=== PATIENT | male | born 1955 | race African-American/Black ===

== ENCOUNTER 2018-01-08 18:32 | Outpatient (CLI) | payer BC, OTHER ==
--- NOTE | 2018-01-08 19:08 | XRAY Report ---
EXAM: CHEST RADIOGRAPHY EXAM DATE: 01/08/2018 06:54 PM. CLINICAL HISTORY: ACUTE ON CHRONIC COUGH. COMPARISON: None. TECHNIQUE: 2 views. FINDINGS: Lungs/Pleura: Mild diffuse interstitial prominence with patchy increased densities throughout much of the left upper lobe. No consolidation, effusion, or pneumothorax. Mediastinum: Heart and mediastinal contours are unremarkable. Other: Scoliosis with degenerative changes. IMPRESSION: Extensive left upper lobe infiltrates. [facility] The call report notification system was initiated by Dr. Del Wyatt at 18:59 hrs on 01/08/18. The above findings were discussed with SALOMÓN Rivas by Dr. Del Wyatt at 19:06 hrs on . Referring Provider Line: [phone] SITE ID: [id number]
== END 2018-01-08 18:33 | disposition home or self-care (01) ==
LOC: DI 18:32
PROVIDERS: ATTEND Physician Assistant
DX: R91.8 Other nonspecific abnormal finding of lung field (principal)
CPT/HCPCS: 71046

== ENCOUNTER 2018-02-22 13:18 | Outpatient (CLI) | payer BC, OTHER ==
[2018-02-22] MEDS ORDERED: ALBUTEROL NEB 2.5 MG/3 ML INH ONE (14:00)
--- NOTE | 2018-02-22 15:11 | XRAY Report ---
TWO VIEW CHEST: 02/22/2018 CLINICAL INDICATION: Cough. COMPARISON: 01/08/2018. FINDINGS: Frontal and lateral views of the chest demonstrate a normal cardiac silhouette. Infiltrates have cleared. The lungs are now clear. No effusion or pneumothorax is present. IMPRESSION: NORMAL CHEST. TD: 02/22/2018 15:11
== END 2018-02-22 13:19 | disposition home or self-care (01) ==
LOC: RT 13:18
PROVIDERS: ATTEND Physician Assistant
DX: R05 Cough (principal); R94.2 Abnormal results of pulmonary function studies; Z87.891 Personal history of nicotine dependence
CPT/HCPCS: 71046; 94060

== ENCOUNTER 2018-05-17 09:09 | Day surgery (SDC) | payer BC ==
[2018-05-17] MEDS ORDERED: LACTATED RINGERS 1,000 ML IV ONE (09:55)
[2018-05-17] MEDS ORDERED: fentaNYL 250 MCG/5 ML VIAL IVP ONE (10:02)
[2018-05-17] MEDS ORDERED: MIDAZOLAM 2 MG/2 ML VIAL IVP ONE (10:02)
[2018-05-17 11:51] VITALS: BP 110/86
== END 2018-05-17 09:10 | disposition home or self-care (01) ==
LOC: SDS 09:09
PROVIDERS: ATTEND Surgery
PROC: 0DBE8ZZ Excision of Large Intestine, Via Natural or Artificial Opening Endoscopic (ICD-10-PCS; 2018-05-17)
PROC: 0DBN8ZZ Excision of Sigmoid Colon, Via Natural or Artificial Opening Endoscopic (ICD-10-PCS; principal; 2018-05-17 10:15)
DX: Z12.11 Encounter for screening for malignant neoplasm of colon (principal); D12.5 Benign neoplasm of sigmoid colon; K62.0 Anal polyp; K64.8 Other hemorrhoids; Z87.891 Personal history of nicotine dependence
CPT/HCPCS: 45385; J3010; J7120

== ENCOUNTER 2019-11-08 09:59 | Outpatient (CLI) | payer BC ==
[2019-11-08 12:35] LABS: BASOPHILS % (AUTO) 0.2 %; EOSINOPHILS % (AUTO) 0.8 %; HGB - HEMOGLOBIN 15.3 g/dL (14.0-18.0); LYMPHOCYTES # (AUTO) 2.3 10^3/uL (1.5-3.5); LYMPHOCYTES % (AUTO) 48.9 %; MEAN CORPUSCULAR HGB CONC 32.7 g/dL (32.0-36.0); MEAN CORPUSCULAR VOLUME 82.7 fL (80.0-94.0); MEAN PLATELET VOLUME 10.8 fL (7.4-11.4); MONOCYTES # (AUTO) 0.2 10^3/uL (0.0-1.0); MONOCYTES % (AUTO) 5.1 %; NEUTROPHILS # (AUTO) 2.1 10^3/uL (1.5-6.6); NEUTROPHILS % (AUTO) 44.6 %; PLT - PLATELET COUNT 240 10^3/uL (130-450); RED BLOOD COUNT 5.66 10^6/uL (4.70-6.10); RED CELL DISTRIBUTION WIDTH 13.9 % (12.0-15.0); WHITE BLOOD COUNT 4.7 x10^3/uL (4.8-10.8)
[2019-11-08 12:49] LABS: HB2 TOTAL 15.3 g/dL; HEMOGLOBIN A1C 0.71 g/dL; HEMOGLOBIN A1C % 6.4 % (4.6-6.2)
[2019-11-08 13:00] LABS: ALBUMIN 3.6 g/dL (3.2-5.5); ALBUMIN/GLOBULIN RATIO 0.9 (1.0-2.2); ALKALINE PHOSPHATASE 74 IU/L (42-121); ALT ALANINE AMINOTRANSFERASE 63 IU/L (10-60); AST ASPARTATE AMINOTRANSFERASE 36 IU/L (10-42); BILIRUBIN,TOTAL 0.3 mg/dL (0.2-1.0); BUN - BLOOD UREA NITROGEN 18 mg/dL (6-20); CARBON DIOXIDE - CO2 24 mmol/L (21-32); CHLORIDE 105 mmol/L (101-111); CHOL/HDL RATIO 6.4 (<5.0); CHOLESTEROL 153 mg/dL; CREATININE 0.8 mg/dL (0.6-1.2); GFR - MDRD 118 (>89); GLUCOSE 113 mg/dL (70-100); HDL CHOLESTEROL 24 mg/dL; LDL CHOLESTEROL,CALCULATED 95 mg/dL; SODIUM 137 mmol/L (135-145); TOTAL PROTEIN 7.5 g/dL (6.7-8.2); VLDL CHOLESTEROL 34 mg/dL
[2019-11-08 13:15] LABS: PLATELET MORPHOLOGY NORMAL APPEARANCE (NORMAL)
[2019-11-08 13:16] LABS: PLATELET ESTIMATE, MANUAL NORMAL (130-450,000) (NORMAL); RBC MORPHOLOGY (MULTIPLE) NORMAL APPEARANCE (NORMAL)
== END 2019-11-08 23:59 | disposition home or self-care (01) ==
LOC: LAB.N 09:59
PROVIDERS: ATTEND Family Medicine
DX: Z00.00 Encounter for general adult medical examination without abnormal findings (principal)
CPT/HCPCS: 36415; 80053; 80061; 83036; 83721; 84443; 85025

== ENCOUNTER 2019-12-08 11:25 | Day surgery (SDC) | payer BC ==
[2019-12-08] MEDS ORDERED: LACTATED RINGERS 1,000 ML IV ONE (12:16)
[2019-12-08] MEDS ORDERED: MIDAZOLAM 2 MG/2 ML VIAL IVP ONE (13:59)
[2019-12-08] MEDS ORDERED: fentaNYL 250 MCG/5 ML VIAL IVP ONE (13:59)
[2019-12-08 15:21] VITALS: BP 124/80
== END 2019-12-08 11:26 | disposition home or self-care (01) ==
LOC: SDS 11:25
PROVIDERS: ATTEND Surgery
PROC: 0DBN8ZZ Excision of Sigmoid Colon, Via Natural or Artificial Opening Endoscopic (ICD-10-PCS; 2019-12-08)
PROC: 0DBP8ZZ Excision of Rectum, Via Natural or Artificial Opening Endoscopic (ICD-10-PCS; principal; 2019-12-08 12:30)
DX: Z12.11 Encounter for screening for malignant neoplasm of colon (principal); D12.8 Benign neoplasm of rectum; K63.5 Polyp of colon; K64.8 Other hemorrhoids; K64.4 Residual hemorrhoidal skin tags; Z79.82 Long term (current) use of aspirin; Z87.891 Personal history of nicotine dependence
CPT/HCPCS: 45380; J3010; J7120

== ENCOUNTER 2020-01-17 13:44 | Outpatient (CLI) | payer BC ==
--- NOTE | 2020-01-17 14:15 | SLEEP CARE CONSULTATION ---
Information from patient questionnaire entered by Bonny Keane. I have reviewed and concur with the information entered by Bonny Keane. This document represents the service I personally performed and the decisions made by me, Shania Montenegro MD, [facility]. History of Present Illness Reason for Visit: New patient Duration of Symptoms: 5 years Time it takes to fall asleep: 15 min Snores at night: Yes Observed to quit breathing while asleep: Yes Sleeps alone due to snoring: Yes Number of times waking at night: 4-5 Reasons for waking at night: reports: Snoring, Gasping for air Toss, Turn, or Twitch while sleeping: Yes Recalls having dreams: No Usually gets out of bed at: varies depending on day Feels refreshed in the morning: No Morning headache: No Sleepy or fatigued during the day: Yes Ever fallen asleep while driving: Yes Takes day naps: Yes Dreams during day naps: No Prior sleep studies: No Additional HPI information: I had the pleasure of seeing Mr. Roberts today regarding the possibility of him having a sleep disorder. As you know, he is a 64 year old gentleman who complains of loud snore. The patient tells me that he normally goes to bed around 11 pm, and it takes him approximately 15 minutes to fall asleep. He has been told that he snores loudly and irregularly at night. He has also been observed to stop breathing in his sleep. His girlfriend has to sleep in a separate room. He can recall waking up on the average of 4 - 5 times during the night. Most of the time he wakes up because of his own snoring, choking, and having to gasp for air. There is a lot of tossing and turning in his sleep. He has somniloquy (sleep talking) but not somnambulism (sleep walking). Generally there is no recollection of dreams. In the morning he usually gets up out of the bed around 6:30 a.m. not feeling refreshed nor rested. He usually does not have a morning headache. During the day he complains of feeling sleepy and fatigued. His score on [place] Sleepiness Scale is 19 out of 24. He has fallen asleep while driving and has gone out of the jeanne. He usually takes naps during the day. Upon falling asleep during the day he denies having vivid dreams. He has never had sleep paralysis, experienced cataplexy but reports symptoms of restless leg syndrome. He reports having impaired concentration during the day. - Parasomnia Symptoms Ever been unable to move upon waking from sleep: Yes Ever felt weak in the knees when startled or emotional: Yes Bothered by creepy, crawly, restless sensations in legs: Yes Problems with memory or concentration: Yes Subjective Initial [place] Sleepiness Scale score: 19 Social History The patient's occupation is a [employer]. Patient is Single and lives in [place]. Have you smoked in the past 12 months: No Cigarettes per day (20/pack): 20 Years of smokin Quit date: 1996 Smoking Pack Years: 25.0 Alcohol use: Yes Alcohol amount and frequency: 1 daily Caffeine use: No Family History Family history of sleep disordered breathing: No Allergies and Home Medications Drug allergies reviewed: Yes Home medication list reviewed: Yes (none) Review of Systems Cardiovascular: denies: high blood pressure, palpitations, chest pain, irregular heart rate or pulse, leg or foot swelling, have to sleep sitting up, other Respiratory: denies: shortness of breath, wheeze, sputum production, chronic cough, other Gastrointestinal: denies: heartburn, difficulty swallowing, nausea, vomitting, diarrhea, abdominal pain, other Urinary: denies: incontinence, frequency, urgency, impotence, other Neurological: denies: headaches, seizure, head trauma, disorientation, speech dysfunction, gait or balance problems, fainting or unconsciousness, other Psychiatric: denies: Attention Deficit Hyperactivity, anxiety, depression, mood disorder, claustrophobia, other Ear/Nose/Throat: denies: nasal congestion, sinus problems, nose bleeds, dry mouth/throat, hoarseness, injury to nose, tonsillectomy, wisdom teeth removed, other Endocrine: denies: thyroid disease, history of goiter, sluggishness, too hot or cold, excessive thirst, increased appetite, increased urination, unexplained weakness, other Musculoskeletal: denies: joint pain, neck pain, back pain, joint swelling, muscle pain or cramping, mobility problems, other Immunologic: denies: sneezing, rash, itching, allergies to food or environment, other Physical Exam Vital signs obtained and entered by: Physical exam is deferred because the Coronavirus epidemic. Height: 6 ft 2 in Weight: 246 lb Body Mass Index: 31.6 BMI Classification: Obese Impression and Plan IMPRESSION: 1. Obstructive Sleep Apnea-Hypopnea Syndrome, as suggested by history of loud and irregular snoring, observed cessation of breath while asleep, frequent awakenings during the night, nocturnal choking, unrefreshed sleep, cognitive impairment, and daytime hypersomnolence. Narrow oropharynx and obesity are common predisposing factors for obstructive sleep apnea-hypopnea syndrome. Pathophysiology of sleep-disordered breathing was discussed. I recommend proceeding to polysomnography to confirm the diagnosis and to assess severity. If he has significant sleep disordered breathing, a manual CPAP titration study will also be performed to find the optimal treatment pressure. I informed the patient of what the sleep studies involve and after some discussion, he agreed to proceed. Plan: 1. Schedule an in-laboratory polysomnography or a home sleep apnea test (HSAT). 2. Avoid long distance driving or when feeling sleepy. 3. Avoid alcohol, sedative and muscle relaxant around bedtime. 4. Attempt to lose weight. 5. Return in 1 to 2 weeks after the study to discuss results and initiate therapy. I spent 100% of this visit face to face with the patient with greater than 50% of this was spent time counseling the patient and coordination of care.
== END 2020-01-17 13:45 | disposition home or self-care (01) ==
LOC: SC 13:44
PROVIDERS: ATTEND Internal Medicine Pulmonary Disease
DX: G47.10 Hypersomnia, unspecified (principal); R06.81 Apnea, not elsewhere classified; R41.89 Other symptoms and signs involving cognitive functions and awareness; G47.8 Other sleep disorders; R06.83 Snoring; E66.9 Obesity, unspecified; Z68.31 Body mass index [BMI] 31.0-31.9, adult
CPT/HCPCS: 99203; 99212

== ENCOUNTER 2020-01-27 20:28 | Outpatient (CLI) | payer BC | END 2020-01-27 20:29 | disposition home or self-care (01) | LOC: SC 20:28 | PROVIDERS: ATTEND Internal Medicine Pulmonary Disease | DX: G47.33 Obstructive sleep apnea (adult) (pediatric) (principal); E66.3 Overweight; Z68.31 Body mass index [BMI] 31.0-31.9, adult | CPT/HCPCS: 95810 ==

== ENCOUNTER 2020-03-05 13:42 | Outpatient (CLI) | payer BC ==
--- NOTE | 2020-03-05 11:01 | SLEEP CARE CONSULTATION ---
Information from patient questionnaire entered by Michelle Moreno. I have reviewed and concur with the information entered by Michelle Moreno. This document represents the service I personally performed and the decisions made by me, Elaine Lambert, RN, MSN, [employer]. History of Present Illness Service Date and Time: 03/05/2020 1030 Initial [place] Sleepiness Scale score: 19 Additional HPI information: SALOME HERNANDEZ had a video appointment for follow up and results of the recently performed polysomnography. I explained the pathophysiology behind obstructive sleep apnea. We then spent quite a bit of time discussing different treatment options. For mild obstructive sleep apnea, surgery and oral appliance are alternatives to nasal CPAP therapy but in moderate or severe cases, nasal CPAP is the most effective and reliable treatment. Because apnea is primarily in supine position, then positional management therapy could be effective. Methods discussed such as positioning with pillows, using a T-shirt with tennis balls in the back, and shown commercial products that have a pillow format on back to prevent supine sleep. I reviewed the impact of weight changes on sleep apnea and strongly recommended losing weight. After some discussion, the patient opted to go with the nasal CPAP therapy. Nasal autoCPAP set at [id number] will be ordered with rationale explained. A manual titration study will be ordered if unable to find optimal pressure with office adjustments. I explained how CPAP machine works and what to expect when using the machine. Using CPAP every night in order to get used to it was emphasized. Patient advised to put CPAP mask on before getting into bed so as not to fall asleep without CPAP. To assist acclimation to CPAP use, it could also be used for a short time during day while reading or watching TV. The patient was instructed to call the CPAP supplier to discuss any mechanical problem that may occur. If the mask given is uncomfortable or is difficult to keep on through the night even with adjustment, contact the CPAP supplier as many will replace with another mask style if notified before 30 days. If snoring or perceives is not getting enough air or too much air from the machine, notify this office. AASM patient education PAP tips were reviewed and pamphlet sent to patient. Patient counseled not drink alcohol less than 4 hours before bedtime as it can increase snoring and apnea. Patient was cautioned about risks of drowsy driving until sleepiness symptoms resolve. Sleep Study - Results Polysomnography/Home Sleep Study results: The quality of the study is good. The patient had normal sleep efficiency. The sleep architecture was relatively normal as well considering the first-night effect. Respiratory monitoring showed mild obstructive sleep apnea-hypopnea (AHI = 5.3) associated with frequent arousals, oxyhemoglobin desaturation and mild hypoxia (tatyana oxygen saturation of 84%). The respiratory events occurred mainly during only during supine REM sleep (supine AHI = 10.8; non-supine = 0.00). Snore was moderate to loud in intensity. There was no significant periodic leg movement of sleep. Cardiac rhythm was normal sinus rhythm with occasional premature atrial contractions. No abnormal behavior (parasomnia) observed during the night. Physical Exam Height: 6 ft 2 in Weight: 244 lb (home weight) Body Mass Index: 31.3 BMI Classification: Obese Impression and Plan 1. Obstructive Sleep Apnea-Hypopnea Syndrome, mild, with lowest oxygen saturation of 84%. Obviously this is the cause of the patients symptoms of unrefreshed sleep, and excessive daytime sleepiness. As mentioned above, the patient will be started on nasal autoCPAP therapy with pressure set at 5-15 cmH2 O. A manual titration study will be completed if unable to find optimal treatment pressure with office adjustments. Compliance guidelines also reviewed. A copy of compliance guidelines will be sent for reference as well as AASM PAP tips. Because the apnea is more severe supine, I instructed to avoid sleeping supine using pillow positioning until able to start CPAP use. * Nasal auto CPAP therapy, pressure at 5-15 cm H2O. * Attempt to lose weight. * Avoid alcohol consumption near bedtime. * Avoid supine sleep until using CPAP. * The patient is again cautioned about driving until sleepiness completely resolves. * Return one month after CPAP obtained. I will assess response to therapy and compliance at that time. Visit Type: Telehealth Video Video Type: Podaddies Time Spent with Patient (minutes): 26 Provider Statement: I spent 100% of the Telehealth Video Call with the patient with greater than 50% spent counseling the patient and coordination of care.
== END 2020-03-05 13:43 | disposition home or self-care (01) ==
LOC: SC 13:42
PROVIDERS: ATTEND Nurse Practitioner Family
DX: G47.33 Obstructive sleep apnea (adult) (pediatric) (principal); E66.9 Obesity, unspecified; Z68.31 Body mass index [BMI] 31.0-31.9, adult

== ENCOUNTER 2020-09-03 09:05 | Outpatient (CLI) | payer BC ==
--- NOTE | 2020-09-03 09:43 | SLEEP CARE CONSULTATION ---
Information from patient questionnaire entered by Em Roberts. I have reviewed and concur with the information entered by Em Roberts. This document represents the service I personally performed and the decisions made by me, Angie Yi ARNP. History of Present Illness Service Date and Time: 09/03/2020904 Previous diagnosis: Mild, Obstructive Sleep Apnea-Hypopnea Syndrome AHI: 5.3 Reason for follow up: three month (Followup pressure change) Equipment type: CPAP Equipment obtained from: [employer] (getting supplies as needed) Mask style: Nasal pillows Backup mask available: Yes (old mask) Last cushion change: last week Prior sleep studies: No Year and Where: 2019 [facility] Type of Sleep Study: Polysomnography HPI additional information: SALOME ROBERTS was diagnosed to have mild, AHI 5.3, obstructive sleep apnea- hypopnea syndrome and returned today for CPAP therapy three month pressure change follow-up. Sleep Study - Results Prior sleep studies: No CPAP Compliance Data - Data Reviewed with Patient Average duration of nightly device use: 5 h 15 min Compliance rate %: 63.3 Current pressure setting (cmH2O): 5-8 Humidity settin Heated hose settin Average residual AHI: 1.8 Average large leak: 1 min 43 sec Subjective Missed days of use due to: reports: other ("being lazy"; 1-2 hour nap after dinner, falling asleep without mask on) Patient concerns: denies: aerophagia, mask discomfort, air blowing in eyes, mask leak noise, condensation in mask/hose, nasal congestion, dry mouth, nose, throat, epistaxis, other Observed to snore while using device: No (only if he sleeps with mouth open) Current pressure setting perceived as: comfortable On therapy, patient: reports: sleeping better, awakening more refreshed, being more awake and alert during the day, more rested overall. denies: drowsiness while driving Initial [place] Sleepiness Scale score: 19 Current [place] Sleepiness Scale score: 7 Allergies and Home Medications Drug allergies reviewed: Yes (NKDA) Home medication list reviewed: Yes (no medications) Review of Systems Review of systems same as previous: Yes (no changes) Physical Exam Heart Rate: 89 O2 Saturation: 98 Height: 6 ft 2 in Weight: 252 lb Body Mass Index: 32.3 BMI Classification: Obese Impression and Plan 1. Obstructive Sleep Apnea-Hypopnea Syndrome, mild, with fair treatment compliance and good apnea control. On CPAP therapy, the patient has better sleep quality and is more rested overall. Patient has been taking a 1-2 hour nap after dinner and then laying down at night before putting on CPAP. He will fall asleep without it and this is reducing his compliance to the 63.3%. I encouraged him to put the CPAP on for naps and also to put mask on before getting into bed so he will not fall asleep without it. He is doing well with the current pressure setting with good apnea control. He just needs to increase his compliance. I will have him follow up in 1-2 months to check compliance again. He voiced understanding and agreement with plan. Patient's apnea severity and rationale for treatment to reduce apnea, improve sleep quality and reduce cardiovascular and cerebrovascular events was reviewed. * Continue auto CPAP pressure at 5-8 cmH2O * Notify me if snoring with mask or feeling that the pressure is too much or too little * Attempt to lose weight * Call this office if any problems using CPAP * Return for follow up in 1-2 months, or sooner if concerns arise Counseling Topics: Spare mask, Weight loss health impact Visit Type: In Office Time Spent with Patient (minutes): 19 Provider Statement: I spent 100% of the Face to Face Visit with the patient with greater than 50% spent counseling the patient and coordination of care.
== END 2020-09-03 09:06 | disposition home or self-care (01) ==
LOC: SC 09:05
PROVIDERS: ATTEND Nurse Practitioner Family
DX: G47.33 Obstructive sleep apnea (adult) (pediatric) (principal); E66.9 Obesity, unspecified; Z68.32 Body mass index [BMI] 32.0-32.9, adult
CPT/HCPCS: 99212; 99213

== ENCOUNTER 2020-10-02 07:48 | Outpatient (CLI) | payer BC ==
--- NOTE | 2020-10-02 08:27 | SLEEP CARE CONSULTATION ---
Information from patient questionnaire entered by Bonny Keane. I have reviewed and concur with the information entered by Bonny Keane. This document represents the service I personally performed and the decisions made by , Angie Yi ARNP. History of Present Illness Service Date and Time: 10/02/2020 0748 Previous diagnosis: Mild, Obstructive Sleep Apnea-Hypopnea Syndrome AHI: 5.3 (in 2019) Reason for follow up: other (2 month, compliance) Equipment type: CPAP Equipment obtained from: [employer] (getting supplies as needed so far) Mask style: Nasal pillows Backup mask available: Yes (other mask) Last cushion change: last week Prior sleep studies: Yes Year and Where: 2019 - [facility] Type of Sleep Study: Polysomnography HPI additional information: SALOME HERNANDEZ was diagnosed to have mild, AHI 5.3, obstructive sleep apnea- hypopnea syndrome and returned today for CPAP therapy 2 month compliance follow- up. CPAP Compliance Data - Data Reviewed with Patient Average duration of nightly device use: 7 hr 32 min Compliance rate %: 90 Current pressure setting (cmH2O): 5-8 Humidity settin Heated hose settin Average residual AHI: 2.6 Central apnea: 0.3 Obstructive apnea: 1.5 Average large leak: 1 min 24 sec Subjective Missed days of use due to: reports: illness Patient concerns: reports: other (waking up with dry eyes but does not feel air blowing in eyes during the night). denies: aerophagia, mask discomfort, air blowing in eyes, mask leak noise, condensation in mask/hose, nasal congestion, dry mouth, nose, throat, epistaxis Observed to snore while using device: No Current pressure setting perceived as: comfortable On therapy, patient: reports: sleeping better, awakening more refreshed, being more awake and alert during the day, more rested overall. denies: drowsiness while driving Initial [place] Sleepiness Scale score: 19 (in 2019) Current [place] Sleepiness Scale score: 7 Allergies and Home Medications Drug allergies reviewed: Yes (NKDA) Home medication list reviewed: Yes (no changes) Review of Systems Review of systems same as previous: Yes (no changes) Physical Exam Heart Rate: 72 O2 Saturation: 97 Height: 6 ft 2 in Weight: 257 lb Body Mass Index: 33.0 BMI Classification: Obese Impression and Plan 1. Obstructive Sleep Apnea-Hypopnea Syndrome, mild, with good treatment compliance and good apnea control. On CPAP therapy, the patient has better sleep quality and is more rested overall. Patient states he has woken up with dry eyes but denies any air blowing into his eyes during the night. Patient encouraged to use OTC moistening eyedrops in the mornings and to see his eye doctor for evaluation. He states he needs to see his eye doctor anyway and will talk to them at that time about the eye dryness. He also has been having problem with the back of headgear slipping off of his head because he is bald in the back. I advised him that he could use some headgear arms on his headgear to help keep the headgear from slipping. I will write a prescription and he will contact [facility] to obtain this. He is feeling very comfortable with his therapy and is now compliant at 90%. Patient's apnea severity and rationale for treatment to reduce apnea, improve sleep quality and reduce cardiovascular and cerebrovascular events was reviewed. * Continue autoCPAP pressure at 5-8 cmH2O * Add headgear arms to help to keep mask headgear from slipping off back of head * Notify me if snoring with mask or feeling that the pressure is too much or too little * Call this office if any problems using CPAP * Return for follow up in ,6 months or sooner if concerns arise Counseling Topics: Spare mask Visit Type: In Office Time Spent with Patient (minutes): 21 Provider Statement: I spent 100% of the Face to Face Visit with the patient with greater than 50% spent counseling the patient and coordination of care.
== END 2020-10-02 07:49 | disposition home or self-care (01) ==
LOC: SC 07:48
PROVIDERS: ATTEND Nurse Practitioner Family
DX: G47.33 Obstructive sleep apnea (adult) (pediatric) (principal); E66.9 Obesity, unspecified; Z68.33 Body mass index [BMI] 33.0-33.9, adult
CPT/HCPCS: 99212; 99213

== ENCOUNTER 2021-03-29 07:49 | Outpatient (CLI) | payer BC ==
--- NOTE | 2021-03-29 08:15 | SLEEP CARE CONSULTATION ---
Information from patient questionnaire entered by Bonny Keane. I have reviewed and concur with the information entered by Bonny Keane. This document represents the service I personally performed and the decisions made by , Angie Yi ARNP. History of Present Illness Service Date and Time: 03/29/2021 0749 Previous diagnosis: Mild, Obstructive Sleep Apnea-Hypopnea Syndrome AHI: 5.3 (in 2019) Reason for follow up: six month Equipment type: CPAP Equipment obtained from: [employer] (getting supplies as needed) Mask style: Nasal pillows Backup mask available: Yes (old mask) Last cushion change: last week Prior sleep studies: Yes Year and Where: 2019 - [facility] Type of Sleep Study: Polysomnography HPI additional information: SLAOME HERNANDEZ was diagnosed to have mild, AHI 5.3, obstructive sleep apnea- hypopnea syndrome and returned today for CPAP therapy six month follow-up. CPAP Compliance Data - Data Reviewed with Patient Average duration of nightly device use: 5 hr 31 min Compliance rate %: 82.8 (180 days) Current pressure setting (cmH2O): 5-8 Humidity settin Heated hose settin Average residual AHI: 1.1 Central apnea: 0.1 Obstructive apnea: 0.5 Average large leak: 41 sec Subjective Patient concerns: denies: aerophagia, mask discomfort, air blowing in eyes, mask leak noise, condensation in mask/hose, nasal congestion, dry mouth, nose, throat, epistaxis, other Observed to snore while using device: No Current pressure setting perceived as: comfortable On therapy, patient: reports: sleeping better, awakening more refreshed, being more awake and alert during the day, more rested overall. denies: drowsiness while driving Initial [place] Sleepiness Scale score: 19 (in 2019) Current [place] Sleepiness Scale score: 9 Allergies and Home Medications Home medication list reviewed: Yes (no changes) Review of Systems Review of systems same as previous: Yes (no changes) Physical Exam Heart Rate: 64 O2 Saturation: 98 Height: 6 ft 2 in Weight: 253 lb Weight change since last visit: 4 lb loss Body Mass Index: 32.5 BMI Classification: Obese Impression and Plan 1. Obstructive Sleep Apnea-Hypopnea Syndrome, mild, with good treatment compliance and good apnea control. On CPAP therapy, the patient has better sleep quality and is more rested overall. He is satisfied with his treatment. He has no complaints or concerns with CPAP use. Patient has lost weight. Currently patients BMI is 32.5. Obesity increases the risk of apnea, CPAP pressure requirements and overall health risks especially cardiovascular and diabetes. Thus patient is advised to continue to lose weight. Weight loss can be done with reducing portion size, reducing refined foods and balancing content with vegetables, fruit and whole grain foods. The patient's CPAP pressure range should accommodate some weight loss. Symptoms to report for additional pressure adjustment discussed. Patient's apnea severity and rationale for treatment to reduce apnea, improve sleep quality and reduce cardiovascular and cerebrovascular events was reviewed. * Continue auto CPAP pressure at 5-8 cmH2O * Notify me if snoring with mask or feeling that the pressure is too much or too little * Attempt to lose weight * Call this office if any problems using CPAP * Return for follow up in 1 year, or sooner if concerns arise Counseling Topics: Spare mask, Weight loss health impact Visit Type: In Office Time Spent with Patient (minutes): 15 Provider Statement: I spent 100% of the Face to Face Visit with the patient with greater than 50% spent counseling the patient and coordination of care.
== END 2021-03-29 07:50 | disposition home or self-care (01) ==
LOC: SC 07:49
PROVIDERS: ATTEND Nurse Practitioner Family
DX: G47.33 Obstructive sleep apnea (adult) (pediatric) (principal); E66.9 Obesity, unspecified; Z68.32 Body mass index [BMI] 32.0-32.9, adult
CPT/HCPCS: 99212

== ENCOUNTER 2021-07-25 15:42 | Outpatient (CLI) | payer BC ==
--- NOTE | 2021-07-25 16:18 | SLEEP CARE CONSULTATION ---
Information from patient questionnaire entered by Em Roberts. I have reviewed and concur with the information entered by Em Roberts. This document represents the service I personally performed and the decisions made by me, Angie Yi ARNP. History of Present Illness Service Date and Time: 07/25/2021 1540 Previous diagnosis: Mild, Obstructive Sleep Apnea-Hypopnea Syndrome AHI: 5.3 (in 2019) Reason for follow up: three month (followup - recall questions) Equipment type: CPAP Equipment obtained from: [employer] (getting supplies as needed) Mask style: Nasal pillows (AirFit P10) Mask brand: Resmed Backup mask available: Yes (old mask) Last cushion change: last week Prior sleep studies: Yes Year and Where: 2019 - [facility] Type of Sleep Study: Polysomnography HPI additional information: SALOME ROBERTS was diagnosed to have mild, AHI 5.3, obstructive sleep apnea- hypopnea syndrome and returned today for CPAP therapy three month follow-up. CPAP Compliance Data - Data Reviewed with Patient Average duration of nightly device use: 5 h 32 min Compliance rate %: 77.8 Current pressure setting (cmH2O): 5-8 Humidity settin Heated hose settin Average residual AHI: 1.2 Average large leak: 45 sec Subjective Missed days of use due to: reports: travel Patient concerns: reports: other (Recall; cough when using device starting about 4 months ago). denies: aerophagia, mask discomfort, air blowing in eyes, mask leak noise, condensation in mask/hose, nasal congestion, dry mouth, nose, t hroat, epistaxis Observed to snore while using device: No Current pressure setting perceived as: comfortable On therapy, patient: reports: sleeping better, awakening more refreshed, being more awake and alert during the day, more rested overall. denies: drowsiness while driving Initial [place] Sleepiness Scale score: 19 (in 2020) Current [place] Sleepiness Scale score: 12 Allergies and Home Medications Home medication list reviewed: Yes (no changes) Review of Systems Review of systems same as previous: Yes (no changes) Physical Exam Heart Rate: 71 O2 Saturation: 98 Height: 6 ft 2 in Weight: 254 lb Body Mass Index: 32.5 BMI Classification: Obese Impression and Plan 1. Obstructive Sleep Apnea-Hypopnea Syndrome, mild, with good treatment compliance and good apnea control. On CPAP therapy, the patient has better sleep quality and is more rested overall. Patient comes in with concerns about the recall. He states that about 4 months ago he had a cough that he did see a doctor for and was told there might be something there but he did not pursue it. He states that a month ago his told him about the recall for [employer] but he did not take it seriously until lately when he heard it from another source. He has talked to [employer] and registered his device but wants to find out more. Patient has already registered their device for the recall. Patient denies any black particles seen in machine or hoses, any unusual odors coming from device. Patient has had a cough that has not resolved with a history of asthma. Patient informed that they may use an inline CPAP filter that they can obtain online to reduce chance of any particles being inhaled or ingested. We discussed thoroughly the health risks of not using the CPAP versus continuing use with the filter in place. If patient is not able to sleep due to waking up choking, gasping for air or other respiratory distress that they may decide to continue using it until it is either replaced or repaired. If patient has an older device that is not on the recall they may switch to using that in the meantime. Patient is in normal range on their side and may practice positional therapy by staying off their back to control apnea or try to obtain an oral appliance to control apnea. Patient voiced understanding and agreement with plan. Patient will start with trying a particle filter with his machine at first and if he notices any debris he will stop using his device and practice positional therapy. Patient's apnea severity and rationale for treatment to reduce apnea, improve sleep quality and reduce cardiovascular and cerebrovascular events was reviewed. He has a history of asthma and uses albuterol inhaler as needed. Patient was encouraged to lose weight for their overall health and to reduce apneas. * Continue auto CPAP pressure at 5-8 cmH2O * Notify me if snoring with mask or feeling that the pressure is too much or too little * Attempt to lose weight * Call this office if any problems using CPAP * Return for follow up in 1 year, or sooner if concerns arise Counseling Topics: Spare mask, Weight loss health impact Visit Type: In Office Time Spent with Patient (minutes): 23 Provider Statement: I spent 100% of the Face to Face Visit with the patient with greater than 50% spent counseling the patient and coordination of care.
== END 2021-07-25 15:43 | disposition home or self-care (01) ==
LOC: SC 15:42
PROVIDERS: ATTEND Nurse Practitioner Family
DX: G47.33 Obstructive sleep apnea (adult) (pediatric) (principal); E66.9 Obesity, unspecified; Z68.32 Body mass index [BMI] 32.0-32.9, adult
CPT/HCPCS: 99212; 99213

== ENCOUNTER 2023-11-06 13:25 | Outpatient (CLI) | payer BC ==
--- NOTE | 2023-11-06 14:02 | Sleep Patient Instructions ---
Sleep Center Visit Summary - Patient Visit Information Reason for Visit: Annual Visit - Patient Instructions Additional Instructions: You will continue with CPAP therapy with pressure set at 5-8 cmH2O. I fitted and sent you home with a full face mask. Please use CPAP with new mask to bring up compliance and we will followup with you in a month or so. We encourage you to continue to try to lose weight. Please follow up with the sleep care office in 1-2 months. - Clinic Information Contact: [facility] [address] [place] [address] [email or web address] T: [phone]
--- NOTE | 2023-11-06 14:06 | SLEEP CARE CONSULTATION ---
Information from patient questionnaire entered by Iesha Figueredo. I have reviewed and concur with the information entered by Iesha Figueredo. This document represents the service I personally performed and the decisions made by me, Angie Yi ARNP. History of Present Illness Service Date and Time: 11/06/2023 1325 Previous diagnosis: Mild, Obstructive Sleep Apnea-Hypopnea Syndrome AHI: 5.3 (in 2019) Reason for follow up: annual (LAST SEEN 2020) Equipment type: CPAP (DILIA Dreamstation; recertified) Equipment obtained from: [employer] (not getting since not using machine much) Mask style: Nasal pillows (AirFit P10) Prior sleep studies: Yes Year and Where: 2019 - [facility] Type of Sleep Study: Polysomnography HPI additional information: SALOME HERNANDEZ was diagnosed to have mild, AHI 5.3, obstructive sleep apnea- hypopnea syndrome and returned today for CPAP therapy annual follow-up. Sleep Study - Results Type of Sleep Study: Polysomnography Prior sleep studies: Yes Year and Where: 2019 - [facility] CPAP Compliance Data - Data Reviewed with Patient Average duration of nightly device use: 5 HRS 19 MINS 37 SEC Compliance rate %: 14 (10/12/22-10/11/23; 62/365 days used) Current pressure setting (cmH2O): 5-8 Average residual AHI: 1.7 Central apnea: 0.1 Obstructive apnea: 0.7 Average large leak: 50 secs Subjective Missed days of use due to: reports: mask issues Patient concerns: reports: mask leak noise. denies: aerophagia, mask discomf ort, air blowing in eyes, condensation in mask/hose, nasal congestion, dry mouth, nose, throat, epistaxis Observed to snore while using device: No Current pressure setting perceived as: comfortable On therapy, patient: reports: sleeping better, awakening more refreshed, more rested overall. denies: drowsiness while driving Initial [place] Sleepiness Scale score: 19 (in 2019) Current [place] Sleepiness Scale score: 11 (11/06/23) Allergies and Home Medications Known drug allergies: No Drug allergies reviewed: Yes Home medication list reviewed: Yes (no changes) Allergy and home medication list: Allergies No Known Drug Allergies Allergy (Verified 11/04/23 10:37) Review of Systems Review of systems same as previous: Yes (no changes) Physical Exam Vital signs obtained and entered by: IESHA Domingo MA Blood Pressure: 144/75 (LEFT ARM) Cuff size: regular Heart Rate: 71 O2 Saturation: 100 Height: 6 ft 2 in Weight: 260 lb 12.8 oz Body Mass Index: 33.5 BMI Classification: Obese Impression and Plan 1. Obstructive Sleep Apnea-Hypopnea Syndrome, mild, with poor treatment compliance and good apnea control. On CPAP therapy, the patient has better sleep quality and is more rested overall. Patient is back because he has been using his nasal pillows mask again after restarting using his CPAP and it is causing a whistle disturbs his . He would like to try a different style of mask. His compliance is at 14%. I advised him that we need to bring up his compliance before we update his supply prescription and possibly add a mask refitting. I fit him for a [employer] Simplus full face mask, large cushion. He felt the mask was going to be a change but he thinks he will be able to get used to it. I will have him followup in 1-2 months to recheck compliance and check how the mask change has been going. If everything is going well then I will update his supply prescription and add a mask change as needed. Patient voiced understanding and agreement with plan of care. Patient's apnea severity and rationale for treatment to reduce apnea, improve sleep quality and reduce cardiovascular and cerebrovascular events was reviewed. 2. Obesity, unspecified. Currently patients BMI is 33.5. Obesity increases the risk of apnea, CPAP pressure requirements and overall health risks especially cardiovascular and diabetes. Thus patient is advised to lose weight. * Continue auto CPAP pressure at 5-8 cmH2O * Sample of mask sent home with patient to use * Notify me if snoring with mask or feeling that the pressure is too much or too little * Attempt to lose weight * Call this office if any problems using CPAP * Return for follow up in 1-2 months, or sooner if concerns arise Mask provided: Yes Counseling Topics: Spare mask, Weight loss health impact Prescriptions: Device supplies (with mask fitting for full face mask) Follow up with Sleep Care in: 1-2 months Visit Type: In Office Time Spent with Patient (minutes): 22 Provider Statement: I spent 100% of the Face to Face Visit with the patient with greater than 50% spent counseling the patient and coordination of care.
[2023-11-06 14:14] VITALS: BP 144/75; O2SAT 100
== END 2023-11-06 13:26 | disposition home or self-care (01) ==
LOC: SC 13:25
PROVIDERS: ATTEND Nurse Practitioner Family
DX: G47.33 Obstructive sleep apnea (adult) (pediatric) (principal); E66.9 Obesity, unspecified; Z68.33 Body mass index [BMI] 33.0-33.9, adult
CPT/HCPCS: 99212; 99213

== ENCOUNTER 2024-01-07 13:33 | Outpatient (CLI) | payer BC ==
--- NOTE | 2024-01-07 14:39 | Sleep Patient Instructions ---
Sleep Center Visit Summary - Patient Visit Information Reason for Visit: 2-month follow-up - Patient Instructions Additional Instructions: You were here for follow up of CPAP therapy. You will be continued on CPAP therapy with pressure at 6-8 cmH2O. Please let us know if the pressure change is uncomfortable and we can make further adjustments of the pressure. Please try to get 7-8 hours of sleep nightly to reduce daytime sleepiness. You should follow up with sleep care in 12 months. You may contact us sooner for any questions or concerns. - Clinic Information Contact: [facility] [address] [place] [id number] [email or web address] T: [phone]
[2024-01-07 14:45] VITALS: BP 142/78; O2SAT 99
--- NOTE | 2024-01-07 14:45 | SLEEP CARE CONSULTATION ---
Information from patient questionnaire entered by Iesha Figueredo. I have reviewed and concur with the information entered by Iesha Figueredo. This document represents the service I personally performed and the decisions made by , Angie Yi ARNP. History of Present Illness Service Date and Time: 01/07/2024 1333 Previous diagnosis: Mild, Obstructive Sleep Apnea-Hypopnea Syndrome AHI: 5.3 (in 2019) Reason for follow up: other (2 MONTH F/U) Equipment type: CPAP (DILIA Dreamstation; recertified) Equipment obtained from: [employer] (not getting since not using machine much) Mask style: Nasal pillows (AirFit P10) Backup mask available: Yes (other mask) Prior sleep studies: Yes Year and Where: 2019 - [facility] Type of Sleep Study: Polysomnography HPI additional information: SALOME HERNANDEZ was diagnosed to have mild, AHI 5.3, obstructive sleep apnea- hypopnea syndrome and returned today for CPAP therapy 2 month follow-up. Sleep Study - Results Type of Sleep Study: Polysomnography Prior sleep studies: Yes Year and Where: 2019 - [facility] CPAP Compliance Data - Data Reviewed with Patient Average duration of nightly device use: 4 HRS 36 MINS 6 SEC Compliance rate %: 85 (11/06/23-01/04/24; 54/60 days used) Current pressure setting (cmH2O): 5-8 Average residual AHI: 1.7 Central apnea: 0.1 Obstructive apnea: 0.3 Average large leak: 49 secs Subjective Patient concerns: denies: aerophagia, mask discomfort, air blowing in eyes, mask leak noise, condensation in mask/hose, nasal congestion, dry mouth, nose, throat, epistaxis Observed to snore while using device: Yes (occasionally) Current pressure setting perceived as: comfortable On therapy, patient: reports: sleeping better, awakening more refreshed, being more awake and alert during the day, more rested overall. denies: drowsiness while driving Initial [place] Sleepiness Scale score: 19 (in 2019) Current [place] Sleepiness Scale score: 10 (01/07/24) Allergies and Home Medications Known drug allergies: No Drug allergies reviewed: Yes Home medication list reviewed: Yes (no changes) Allergy and home medication list: Allergies No Known Drug Allergies Allergy (Verified 01/05/24 14:38) Review of Systems Review of systems same as previous: Yes (NO CHANGE) Physical Exam Vital signs obtained and entered by: IESHA Domingo MA Blood Pressure: 142/78 (RIGHT ARM) Cuff size: regular Heart Rate: 79 O2 Saturation: 99 Height: 6 ft 2 in Weight: 251 lb 12.8 oz Weight change since last visit: 9 lb loss Body Mass Index: 32.3 BMI Classification: Obese Impression and Plan 1. Obstructive Sleep Apnea-Hypopnea Syndrome, mild, with good treatment compliance and good apnea control. On CPAP therapy, the patient has better sleep quality and is more rested overall. Patient has significant improvement of their sleep apnea and is satisfied with current CPAP therapy.Patient states he still is tired in the afternoon and is falling asleep when watching TV. He averages about 4-1/2 hours of sleep nightly. I reviewed with patient that most people require 7-9 hours of sleep for optimal mental and physical function. Less than 5-6 hours of sleep consistently can contribute to health risks and mortality. Thus patient is advised to strive for a minimum of 7 hours of sleep. He voiced understanding and will try to get more sleep. Patient's apnea severity and rationale for treatment to reduce apnea, improve sleep quality and reduce cardiovascular and cerebrovascular events was reviewed. 2. Obesity, unspecified. Currently patients BMI is 32.3. He has lost weight. Obesity increases the risk of apnea, CPAP pressure requirements and overall health risks especially cardiovascular and diabetes. Thus patient is advised to continue to try to lose weight. * Change Auto CPAP pressure at 6-8 cmH2O * Update supply prescription * Notify me if snoring with mask or feeling that the pressure is too much or too little * Attempt to lose weight * Call this office if any problems using CPAP * Return for follow up in 12 months, or sooner if concerns arise Counseling Topics: Weight loss health impact Prescriptions: Device supplies Follow up with Sleep Care in: 1 year Visit Type: In Office Time Spent with Patient (minutes): 22 Provider Statement: I spent 100% of the Face to Face Visit with the patient with greater than 50% spent counseling the patient and coordination of care.
== END 2024-01-07 13:34 | disposition home or self-care (01) ==
LOC: SC 13:33
PROVIDERS: ATTEND Nurse Practitioner Family
DX: G47.33 Obstructive sleep apnea (adult) (pediatric) (principal); E66.9 Obesity, unspecified; Z68.32 Body mass index [BMI] 32.0-32.9, adult
CPT/HCPCS: 99212; 99213